=== PATIENT | male | born 1990 | race Caucasian/White ===

== ENCOUNTER 2018-05-17 12:55 | Emergency (ER) | payer OTHER ==
[2018-05-17 13:24] VITALS: BP 112/72
--- NOTE | 2018-05-17 13:24 | ER Document Report ---
HPI - HPI Patient complains to provider of: Upper back pain Onset: Last week Onset/Duration: Gradual Pain Level: 3 Context: 27-year-old male works as a [employer] company is complaining of upper back pain. He thinks it is pulled muscles. He did not do anything specific. No radiculopathy. No fever or chills. No IV drug use. Associated Symptoms: None Exacerbated by: Movement Relieved by: Denies - ROS ROS below otherwise negative: Yes Systems Reviewed and Negative: Yes All other systems reviewed and negative Past Medical History - General Information source: Patient - Social History Smoking Status: Never Smoker Lives with: Family Family History: None - Medical History Medical History: Negative Past Surgical History: Reports: Hx Abdominal Surgery - hernia - Immunizations Hx Diphtheria, Pertussis, Tetanus Vaccination: Yes Vertical Provider Document - CONSTITUTIONAL Agree With Documented VS: Yes Exam Limitations: No Limitations - INFECTION CONTROL TRAVEL OUTSIDE OF THE [place] IN LAST 30 DAYS: No - NECK Neck: Supple Notes: Nontender cervical spine. Mild tender bilateral upper thoracic paraspinal muscles - RESPIRATORY Respiratory: Breath Sounds Normal, No Respiratory Distress - CARDIOVASCULAR Cardiovascular: Regular Rate, Regular Rhythm - DERM Integumentary: No Rash Discharge - Discharge Clinical Impression: Upper thoracic back strain Condition: Good Disposition: HOME, SELF-CARE Instructions: Acetaminophen, Ibuprofen (General) ([facility]), Muscle Relaxers ([facility]), Muscle Strain ([facility]), Warm Packs ([facility]) Additional Instructions: Warm compress Tylenol up to 4000 mg a day for pain Motrin 800 mg 3 times a day for inflammation See your doctor if persists Gentle stretching Flexeril as a muscle relaxer up to 3 times a day Prescriptions: Cyclobenzaprine HCl [Flexeril 10 Mg Tablet] 10 mg PO TIDP PRN #20 tablet PRN Reason: Forms: Return to Work
== END 2018-05-17 14:00 | disposition home or self-care (01) ==
LOC: ER 12:55
DX: S29.012A Strain of muscle and tendon of back wall of thorax, initial encounter (principal); X58.XXXA Exposure to other specified factors, initial encounter
CPT/HCPCS: 99283

== ENCOUNTER 2018-05-24 16:11 | Emergency (ER) | payer OTHER ==
[2018-05-24 16:39] VITALS: BP 116/73
[2018-05-24] MEDS ORDERED: IBUPROFEN 800 MG TABLET PO ONE (17:00)
--- NOTE | 2018-05-24 17:01 | ER Document Report ---
ED Neck/Back Problem - General Chief Complaint: Neck and Upper Back Pain Stated Complaint: NECK STIFFNESS Time Seen by Provider: 05/24/18 16:47 Mode of Arrival: Ambulatory Information source: Patient Notes: 27-year-old male presented ED for complaint of neck back and shoulder pain. He was seen here on 05/17/2018 the same and given medication but he states is not helping. He denies any traumas any injuries or anything that he knows of. He states he just knows that the pain medicine is not working and he is still having pain. TRAVEL OUTSIDE OF THE [place] IN LAST 30 DAYS: No - HPI Patient complains to provider of: Pain, Neck, Upper back - Shoulder Onset: Other - Unknown how long Where: Home Onset: Gradual Timing: Still present Quality of pain: Sharp Severity: Moderate Pain Level: 4 Context: Other Recent injury: No - Does not know of any injury Associated symptoms: Like prior neck/back pain, Upper back pain, Other - Right shoulder. denies: Motor loss, Numbness/tingling, Radiation to arm, Radiation to chest, Radiation to leg, Sensory loss, Sweaty, Unable to urinate, Lower back pain Exacerbated by: Movement of neck, Movement of trunk Relieved by: Nothing Similar symptoms previously: Yes Recently seen / treated by doctor: Yes - Related Data Allergies/Adverse Reactions: gracia Allergy (Verified 05/24/18 16:13) No Known Drug Allergies Allergy (Verified 05/24/18 16:13) Past Medical History - General Information source: Patient - Social History Smoking Status: Never Smoker Cigarette use (# per day): No Chew tobacco use (# tins/day): No Smoking Education Provided: No Frequency of alcohol use: Rare Drug Abuse: None Occupation: Call center Lives with: Parents Family History: None Patient has suicidal ideation: No Patient has homicidal ideation: No - Past Medical History Cardiac Medical History: Reports: None Pulmonary Medical History: Reports: None EENT Medical History: Reports: None Neurological Medical History: Reports: None Endocrine Medical History: Reports: None Renal/ Medical History: Reports: None Malignancy Medical History: Reports None GI Medical History: Reports: None Musculoskeletal Medical History: Reports None Skin Medical History: Reports None Psychiatric Medical History: Reports: None Traumatic Medical History: Reports: None Infectious Medical History: Reports: None Past Surgical History: Reports: Hx Abdominal Surgery - hernia - Immunizations Immunizations up to date: Yes Hx Diphtheria, Pertussis, Tetanus Vaccination: Yes Review of Systems - Review of Systems Constitutional: No symptoms reported EENT: No symptoms reported Cardiovascular: No symptoms reported Respiratory: No symptoms reported Gastrointestinal: No symptoms reported Genitourinary: No symptoms reported Male Genitourinary: No symptoms reported Musculoskeletal: No symptoms reported Skin: No symptoms reported Hematologic/Lymphatic: No symptoms reported Neurological/Psychological: No symptoms reported -: Yes All other systems reviewed and negative Physical Exam - Vital signs Vitals: Temp Pulse Resp BP Pulse Ox 98.5 F 80 16 116/73 100 05/24/18 16:37 05/24/18 16:37 05/24/18 16:37 05/24/18 16:37 05/24/18 16:37 Interpretation: Normal - General General appearance: Appears well, Alert - HEENT Head: Normocephalic, Atraumatic Eyes: Normal Pupils: PERRL - Respiratory Respiratory status: No respiratory distress Chest status: Nontender Breath sounds: Normal Chest palpation: Normal - Cardiovascular Rhythm: Regular Heart sounds: Normal auscultation Murmur: No - Abdominal Inspection: Normal Distension: No distension Bowel sounds: Normal Tenderness: Nontender Organomegaly: No organomegaly - Back Back: Normal, Tender, Vertebra tenderness. No: Deformity/step-off, CVA tenderness, Scars, Scoliosis, Wounds - Extremities General upper extremity: Normal color, Normal ROM, Normal temperature General lower extremity: Normal inspection, Nontender, Normal color, Normal ROM , Normal temperature, Normal weight bearing. No: Santana's sign Shoulder: Tender. No: Abrasion, Deformity, Dislocation, Ecchymosis, Instability , Laceration, Limited ROM - Neurological Neuro grossly intact: Yes Cognition: Normal Orientation: AAOx4 Michael Coma Scale Eye Opening: Spontaneous [place] Coma Scale Verbal: Oriented Michael Coma Scale Motor: Obeys Commands [place] Coma Scale Total: 15 Speech: Normal Motor strength normal: LUE, RUE, LLE, RLE Sensory: Normal - Psychological Associated symptoms: Normal affect, Normal mood - Skin Skin Temperature: Warm Skin Moisture: Dry Skin Color: Normal Course - Re-evaluation Re-evalutation: 05/24/18 22:30 Discussed x-rays with patient and written report of x-rays given the patient. Patient instructed on exercises for range of motion and shoulder. Patient to follow-up with the primary doctor and orthopedics. - Vital Signs Vital signs: Temp Pulse Resp BP Pulse Ox 98.5 F 80 16 116/73 100 05/24/18 16:37 05/24/18 16:37 05/24/18 16:37 05/24/18 16:37 05/24/18 16:37 - Diagnostic Test Radiology reviewed: Image reviewed, Reports reviewed Discharge - Discharge Clinical Impression: Neck pain, Upper back pain Right shoulder pain Qualifiers: Chronicity: unspecified Qualified Code(s): M25.511 - Pain in right shoulder Condition: Stable Disposition: HOME, SELF-CARE Instructions: Family Physicians / Practices, Forearm Exercise Program ([facility]), Range of Motion Exercises ([facility]), Exercise Program for the Shoulder ([facility]) Additional Instructions: Myalagia (Muscle Pain) Myalgia is pain in the muscles. We use the word myalgia to describe muscle pain where there's no history of injury, no known muscle disease, and the muscles are normal to examination. Myalgias can be a symptom of an acute illness , such as influenza, hepatitis, or any viral illness, especially with fever. Sometimes the muscle pain comes before any other symptoms. Myalgia can also be an early symptom of inflammatory muscle disease, such as lupus. If myalgia is accompanied by an acute illness that explains the muscle pain , then no further testing needs to be done. When there's no clear reason for the pain, tests may be done to see if there's an inflammatory or other disease of the muscles. The usual treatment for myalgias is anti-inflammatory medication, such as ibuprofen. Muscle aches may be soothed with a heating pad or hot compress. If muscles remain painful for more than a few days, you'll need testing and followup. Return if a muscle becomes swollen, red, or severely painful. Ibuprofen Ibuprofen is an excellent, safe drug for pain control. In addition, it has potent antiinflammatory effects which are beneficial, especially in the treatment of injuries, arthritis, or tendonitis. It's best to take ibuprofen with food. Persons with ulcer disease or allergy to aspirin should notify their physician of this before taking ibuprofen. Take the medication exactly as prescribed. Don't take additional doses unless instructed to do so by your doctor. If you develop wheezing, shortness of breath, hives, faintness, stomach pain, vomiting, or dark black stools, return for re-evaluation at once. Ice Packs Apply ice packs frequently against the painful area. Many different schedules are recommended, such as "20 minutes on, 20 minutes off" or "one hour ice, two hours rest." If you need to work, you may need to go longer between ice treatments. You should plan to have the area ice packed AT LEAST one fourth of the time. The ice should be applied over the wrap, tape, or splint, or over a layer of cloth -- not directly against the skin. Some ice bags have a built-in cloth and can be put directly on the skin. Warm Packs After approximately two days, apply gentle heat (such as a heating pad or hot water bottle) for about 20 to 30 minutes about every two hours -- at least four times daily. Warmth and elevation will help you make a more rapid recovery , and will ease the pain considerably. Do not use HOT heat, and never apply heat for longer than 30 minutes. The continuous heat can invisibly damage skin and muscles -- even when no burn is seen on the surface. Damaged muscles can make you MORE sore. FOLLOW-UP CARE: If you have been referred to a physician for follow-up care, call the physician s office for an appointment as you were instructed or within the next two days. If you experience worsening or a significant change in your symptoms, notify the physician immediately or return to the Emergency Department at any time for re-evaluation. Forms: Return to Work
--- NOTE | 2018-05-24 17:26 | RADIOLOGY REPORT (SQ) ---
EXAM DESCRIPTION: SHOULDER RIGHT 2 OR MORE VIEWS COMPLETED DATE/TIME: 05/24/2018 5:17 pm REASON FOR STUDY: continued pain no know injury COMPARISON: None. NUMBER OF VIEWS: Three views. TECHNIQUE: Internal rotation, external rotation, and Y view images acquired of the right shoulder. LIMITATIONS: None. FINDINGS: MINERALIZATION: Normal. BONES: No acute fracture or dislocation. No worrisome bone lesions. JOINTS: No dislocation. VISUALIZED LUNGS AND RIBS: No pneumothorax. No rib fracture. SOFT TISSUES: No radiopaque foreign body. OTHER: No other significant finding. IMPRESSION: NEGATIVE STUDY OF THE RIGHT SHOULDER. NO RADIOGRAPHIC EVIDENCE OF ACUTE INJURY. TECHNICAL DOCUMENTATION: JOB ID: [id number] [employer]- All Rights Reserved Reading location - IP/workstation name: [email or web address]
--- NOTE | 2018-05-24 17:27 | RADIOLOGY REPORT (SQ) ---
EXAM DESCRIPTION: CERV SP 4 OR 5 VIEWS COMPLETED DATE/TIME: 05/24/2018 5:17 pm REASON FOR STUDY: continued pain no know injury COMPARISON: None. NUMBER OF VIEWS: Five views. TECHNIQUE: AP, lateral, obliques and odontoid radiographic images acquired of the cervical spine. LIMITATIONS: None. FINDINGS: MINERALIZATION: Normal. ALIGNMENT: Anatomic. VERTEBRAE: Vertebral bodies of normal height. DISCS: No significant osteophytes or sclerosis. Disc height maintained. FORAMINA: No osteophytes or foraminal narrowing. LATERAL AND POSTERIOR ELEMENTS: Facets, lateral masses and spinous processes without significant find ings. HARDWARE: None in the spine. SOFT TISSUES: No masses or calcifications. Lung apices clear. OTHER: No other significant finding. IMPRESSION: NO SIGNIFICANT RADIOGRAPHIC FINDING IN THE CERVICAL SPINE. TECHNICAL DOCUMENTATION: JOB ID: [id number] [employer]- All Rights Reserved Reading location - IP/workstation name: [email or web address]
== END 2018-05-24 19:03 | disposition home or self-care (01) ==
LOC: ER 16:11
DX: M54.2 Cervicalgia (principal); M25.511 Pain in right shoulder; M54.89 Other dorsalgia; Z91.018 Allergy to other foods
CPT/HCPCS: 72050; 99283

== ENCOUNTER → 2020-03-15 | Outpatient (CLI) | payer BC ==
[2020-03-15 10:57] LABS: A TYPE INFLUENZA AG NEGATIVE (NEGATIVE); B INFLUENZA AG NEGATIVE (NEGATIVE)
[2020-03-15 13:50] VITALS: BP 98/63
--- NOTE | 2020-03-15 13:50 | ER RDC ASSESSMENT REPORT ---
Intake - In the Last 14 days Have you traveled outside [place]?: No Have you been in close contact with someone CONFIRMED: Yes Worked in Healthcare?: No - Symptoms Subjective Fever(Mccormick feverish): Yes Chills: Yes Muscule Aches: Yes Runny Nose: Yes Sore Throat: No Cough (New or worsening chronic cough): Yes Shortness of breath: No Nausea or Vomiting: No Headache: Yes Abdominal Pain: No Diarrhea(3 or more loose stools in last 24 hours): No - Do you have any of the following Chronic lung disease: Asthma or emphysema or COPD: No Cystic Fibrosis: No Diabetes: No High Blood Pressure: No Cardiovascular Disease: No Chronic Kidney Disease: No Chronic Liver Disease: No Chronic blood disorder like Sickle Cell Disease: No Weak immune system due to disease or medication: No Neurologic condition that limits movement: No Developmental delay - Moderate to Severe: No Recent (within past 2 weeks) or current : No Morbid Obesity (>100 pounds over ideal weight): No - Objective Vital Signs: 5'10" 172 lb Temperature: 97.7 F Pulse Rate: 78 Respiratory Rate: 14 Blood Pressure: 98/63 O2 Sat by Pulse Oximetry: 96 Objective: Given above, testing performed: Flu strep COVID Disposition: Home; Selfcare General - General Chief Complaint: Flu Symptoms Time Seen by Provider: 03/15/20 10:10 Mode of Arrival: Ambulatory Information source: Patient - [facility] Notes: 29-year-old male presents to [facility] clinic for COVID-19 testing following exposure to another individual that has tested positive for COVID-19. Patient has no significant medical history. Patient is reporting onset of symptoms 03/12/2020. He is complaining of mild fever, chills, myalgia, rhinorrhea, dry cough, and headache. No exacerbating factors or relieving factors. Patient denies any sore throat, shortness of breath, nausea, vomiting, diarrhea or abdominal pain. - Related Data Allergies/Adverse Reactions: gracia Allergy (Verified 05/24/18 16:13) No Known Drug Allergies Allergy (Verified 05/24/18 16:13) Past Medical History - General Information source: Patient - Social History Smoking Status: Never Smoker Family History: None - Past Medical History Cardiac Medical History: Reports: None Pulmonary Medical History: Reports: None EENT Medical History: Reports: None Neurological Medical History: Reports: None Endocrine Medical History: Reports: None Renal/ Medical History: Reports: None. Denies: Hx Peritoneal Dialysis Malignancy Medical History: Reports None GI Medical History: Reports: None Musculoskeletal Medical History: Reports None Skin Medical History: Reports None Psychiatric Medical History: Reports: None Traumatic Medical History: Reports: None Infectious Medical History: Reports: None Past Surgical History: Reports: Hx Abdominal Surgery - hernia Physical Exam - General General appearance: Appears well In distress: None Notes: PHYSICAL EXAMINATION: GENERAL: Well-appearing and in no acute distress. HEAD: Atraumatic, normocephalic. EYES: sclera anicteric, conjunctiva are normal. ENT: nares patent. Moist mucous membranes. NECK: Normal range of motion, supple without lymphadenopathy LUNGS: CTAB and equal. No wheezes rales or rhonchi. HEART: Regular rate and rhythm without murmurs ABDOMEN: Soft, nontender, normal bowel sounds, no guarding. EXTREMITIES: Normal range of motion, no pitting edema. No cyanosis. NEUROLOGICAL: Cranial nerves grossly intact. Normal speech. PSYCH: Normal mood, normal affect. SKIN: Warm, Dry, normal turgor, no rashes or lesions noted Diagnostic Results Laboratory Results: 03/15/20 10:04 Throat Throat Culture - Pending Influenza A (Rapid) NEGATIVE (NEGATIVE) 03/15/20 10:13 Influenza B (Rapid) NEGATIVE (NEGATIVE) 03/15/20 10:13 Group A Strep Rapid NEGATIVE (NEGATIVE) 03/15/20 10:04 Patient Education/Counseling Counseling/Education: Patient presents with upper respiratory symptoms worrisome for possible Covid 19. Patient does not have emergency worrying symptoms such as difficulty breathing, shortness of breath, chest pain, pressure, confusion or cyanosis. Patient appears suitable for discharge as vital signs are stable and patient is nontoxic in appearance. Good return precautions have been discussed with patient, patient verbalized understanding and is agreeable with discharge plan of care at this time. Guidance for worsening S/SX: As a person under investigation for Covid 19, the [facility], division of public health advises you to adhere to the following guidance until your test results are reported to you. If your test result is positive, you will receive additional information from your provider and your local health department at that time. Remain at home until you are cleared by the health provider or public health authorities. Keep a log of visitors to your home, notify any visitors to your home of your isolation status. If you plan to move to a new address or leave the county, notify the local health department in your County. Call your doctor or seek care if you have an urgent medical need. Before seeking medical care, call ahead to get instructions from the provider before arriving at the medical office clinic or hospital. Notify them that you are being tested for the virus that causes Covid 19 so that arrangements can be made, as necessary, to prevent transmission to others in the healthcare setting. Next, notify the local health department in your county. If a medical emergency arises and you need to call 911, inform the first responders that you are being tested for the virus that causes Covid 19. Next, notify the local health department in your county. RDC Discharge - Discharge Clinical Impression: Encounter for screening laboratory testing for COVID-19 virus Respiratory infection, upper Qualifiers: URI type: unspecified URI Qualified Code(s): J06.9 - Acute upper respiratory infection, unspecified Condition: Good Disposition: Home; Selfcare
== END ==
LOC: RDC 09:35
PROVIDERS: ATTEND Registered Nurse
DX: Z20.828 Contact with and (suspected) exposure to other viral communicable diseases (principal); J06.9 Acute upper respiratory infection, unspecified; R50.9 Fever, unspecified; R05 Cough; M79.10 Myalgia, unspecified site; R09.89 Other specified symptoms and signs involving the circulatory and respiratory systems; R51 Headache
CPT/HCPCS: 87070; 87880; 87635; 87804; C9803